=== PATIENT | male | born 1990 | race Two or more races ===

== ENCOUNTER 2025-09-14 18:31 | Emergency (ER) | payer BC ==
[~2025-09-14] VITALS: Ht 167.6 cm; Wt 75.3 kg
[2025-09-14] MEDS ORDERED: METOCLOPRAMIDE HCL 10 MG/2 ML VIAL ONE (19:26)
[2025-09-14] MEDS ORDERED: KETOROLAC TROMETHAMINE 15 MG/ML VIAL ONE (19:26)
[2025-09-14] MEDS ORDERED: ONDANSETRON HCL/PF 4 MG/2 ML VIAL ONE (19:26)
[2025-09-14] MEDS: IV NS 0.9% 1,000 ML BAG IV ONE (19:27)
[2025-09-14] MEDS: ONDANSETRON HCL/PF 4 MG/2 ML VIAL IVP ONE (19:27)
[2025-09-14] MEDS: METOCLOPRAMIDE HCL 10 MG/2 ML VIAL IV ONE (19:27)
[2025-09-14] MEDS: KETOROLAC TROMETHAMINE 15 MG/ML VIAL IV ONE (19:27)
[2025-09-14 19:31] LABS: PLATELET COUNT (AUTO) 184 K/uL (150-450); RED BLOOD CELL COUNT(AUTO) 5.33 MIL/uL (4.5-6.0); RED CELL DISTRIBUTION WIDTH 13.7 % (11.5-15.0); WHITE BLOOD COUNT (AUTO) 6.3 K/uL (4.3-11.0)
[2025-09-14 19:40] LABS: CALCIUM, SERUM 8.7 mg/dL (8.5-10.1); CREATININE 0.8 mg/dL (0.6-1.3); SODIUM SERUM 144.0 mmol/L (136-145); UREA NITROGEN, BLOOD 11.0 mg/dL (7-18)
[2025-09-14 19:41] LABS: APPEARANCE,URINE CLEAR (CLEAR); BLOOD, URINE NEGATIVE Ery/uL (NEGATIVE); LEUKOCYTE ESTERASE ,URINE NEGATIVE (NEGATIVE); NITRITE, URINE NEGATIVE (NEGATIVE); UGLUCOSE NEGATIVE (NEGATIVE)
[2025-09-14] MEDS ORDERED: BUTALB/APAP/CAFFEINE 1 EACH TABLET PO PRN (20:30)
[2025-09-14] MEDS ORDERED: BUTA1CAP46 PO (21:07)
[2025-09-14 21:39] VITALS: BP 122/70; TEMP 98.9; O2SAT 99
== END 2025-09-14 21:40 | disposition home or self-care (01) ==
LOC: ER 18:42
DX: G43.909 Migraine, unspecified, not intractable, without status migrainosus (principal)
CPT/HCPCS: 99284; 96374; 96375; 96361; 85025; 80048; 81003; 36415; J1885; J1200; J2765; J2405; J7030